=== PATIENT | female | born 1950 | race Caucasian/White ===

== ENCOUNTER 2017-03-22 17:52 | Emergency (ER) | payer OTHER ==
[~2017-03-22] VITALS: Ht 167.6 cm; Wt 100.0 kg
[2017-03-22 17:54] VITALS: BP 185/105; PULSE 95; RESP 12; TEMP 96.7; O2SAT 100
--- NOTE | 2017-03-22 17:58 | PD ---
Physical Exam Time Seen by Provider: 17:55 Narrative 67 y/o female presents for evaluation of depression, suicidal thoughts intermittently for most of her life. Was never forthright with her pcp about these feelings and her friend convinced her to come today. feelings are getting worse. vital signs reviewed. Seen at triage desk. Awaiting bed placement. Data Data Last Documented VS Vital Signs Date Time Temp Pulse Resp B/P Pulse Ox O2 Delivery O2 Flow Rate FiO2 03/22/17 17:54 96.7 95 12 185/105 100 MDM Medical Record Reviewed: Yes Supervised Visit with UMA: Chuck Seaman March 22, 2017 17:58
--- NOTE | 2017-03-22 18:40 | PD ---
HPI Chief Complaint: Psychiatric Symptoms Time Seen by Provider: 18:35 Travel History International Travel<30 days: No Contact w/Intl Traveler<30days: No Traveled to known affect area: No History of Present Illness HPI 67-year-old female that presents to the ED for evaluation of psych. Patient has a chronic history of depression that she's had since childhood. Patient currently takes medications. Per patient she follows with psychiatrist in [facility] for SMA. Per patient she feels like her symptoms are not being treated properly. Per patient she is having more depression and more suicidal thoughts. Per friend who is in the bedside she's been making more suicidal statements and common started on her usual. She does appear to be more depressed. She states that she's been having recent stressors including inability to ambulate secondary to recent surgery to her knees as well as recent falls and losing contact with one of her sons. She has allergies to morphine, chocolate and peanuts. She went to see her PCP and the doctor wanted her to come here to get evaluated. No suicidal or homicidal ideation at this time but she does state that if something gets her on the edge she might just do it. Per friend and patient's symptoms seem to be having worsening for the past week. PFSH Past Medical History Arthritis: Yes Blood Disorders: No Anxiety: No Depression: Yes Cancer: No Cardiovascular Problems: Yes Diminished Hearing: No Endocrine: No Genitourinary: No Hypertension: Yes Immune Disorder: No Musculoskeletal: Yes Neurologic: Yes Psychiatric: Yes Reproductive: No Respiratory: Yes Tetanus Vaccination: < 5 Years Influenza Vaccination: Yes Menopausal: Yes Past Surgical History AICD: No Eye Surgery: Yes (CATARACTS) Gynecologic Surgery: Yes (partial hysterectomy tubal ligation, bilat. sepectomy ) Pacemaker: No Tonsillectomy: Yes Other Surgery: Yes Social History Alcohol Use: Yes (beer and wine occasionally) Tobacco Use: No Substance Use: No Allergies-Medications (Allergen,Severity, Reaction): Coded Allergies: Morphine (Verified Adverse Reaction, Severe, GI, 03/22/17) Uncoded Allergies: chocolate (Adverse Reaction, Intermediate, sinus congestion, 08/29/06) peanuts (Adverse Reaction, Intermediate, SINUS CONGESTION, 08/29/06) Reported Meds & Prescriptions Reported Meds & Active Scripts Active Reported [place] (Hydrocodone-Acetaminophen) Unknown Strength Tab 1 Tab PO Q4-6H PRN Tramadol (Tramadol HCl) 50 Mg Tab 50 Mg PO Q4-6H PRN Flonase Nasal [place] (Fluticasone Nasal [place]) 50 Mcg/Act [place] 1 Spr EACH NARE DAILY Mobic (Meloxicam) 7.5 Mg Tab 7.5 Mg PO DAILY Hydrochlorothiazide 25 Mg Tab 25 Mg PO DAILY Metformin (Metformin HCl) 500 Mg Tab 500 Mg PO BID With meals Metoprolol Tartrate 25 Mg Tab 25 Mg PO BID Cymbalta DR (Duloxetine HCl) 60 Mg Capdr 60 Mg PO DAILY Gabapentin 600 Mg Tab 600 Mg PO QID Ergocalciferol 50,000 Unit Cap 50,000 Units PO WEEKLY Alprazolam 0.5 Mg Tab 0.5 Mg PO BID PRN Wellbutrin Xl 24 HR (Bupropion HCl) 300 Mg Tab 300 Mg PO DAILY Lisinopril 20 Mg Tab 20 Mg PO DAILY Ditropan (Oxybutynin Chloride) 5 Mg Tab 5 Mg PO QID Lamictal (Lamotrigine) 25 Mg Tab 25 Mg PO HS Review of Systems Except as stated in HPI: all other systems reviewed are Neg Physical Exam Narrative GENERAL: SKIN: Warm and dry. HEAD: Atraumatic. Normocephalic. EYES: Pupils equal and round. No scleral icterus. No injection or drainage. ENT: No nasal bleeding or discharge. Mucous membranes pink and moist. Tongue is midline. No uvula deviation. NECK: Trachea midline. No JVD. CARDIOVASCULAR: Regular rate and rhythm. No murmurs, S3, S4. RESPIRATORY: No accessory muscle use. Clear to auscultation. Breath sounds equal bilaterally. GASTROINTESTINAL: Abdomen soft, non-tender, nondistended. Hepatic and splenic margins not palpable. MUSCULOSKELETAL: Extremities without clubbing, cyanosis, or edema. No obvious deformities. Full range of motion of the upper and lower extremities bilaterally. 2+ pulses bilaterally. NEUROLOGICAL: Awake and alert. No obvious cranial nerve deficits. Motor grossly within normal limits. Five out of 5 muscle strength in the arms and legs. Normal speech. PSYCHIATRIC: Depressed mood and affect; insight and judgment normal. Data Data Last Documented VS Vital Signs Date Time Temp Pulse Resp B/P Pulse Ox O2 Delivery O2 Flow Rate FiO2 03/22/17 18:24 16 03/22/17 17:54 96.7 95 185/105 100 Orders Complete Blood Count With Diff (03/22/17 18:16) Comprehensive Metabolic Panel (03/22/17 18:16) Psych Screen (03/22/17 18:16) Drug Screen, Random Urine (03/22/17 18:16) Labs Laboratory Tests Test 03/22/17 03/22/17 18:35 18:50 White Blood Count 6.1 TH/MM3 Red Blood Count 4.32 MIL/MM3 Hemoglobin 12.4 GM/DL Hematocrit 37.9 % Mean Corpuscular Volume 87.6 FL Mean Corpuscular Hemoglobin 28.8 PG Mean Corpuscular Hemoglobin 32.8 % Concent Red Cell Distribution Width 14.1 % Platelet Count 286 TH/MM3 Mean Platelet Volume 8.3 FL Neutrophils (%) (Auto) 56.3 % Lymphocytes (%) (Auto) 27.2 % Monocytes (%) (Auto) 7.1 % Eosinophils (%) (Auto) 8.3 % Basophils (%) (Auto) 1.1 % Neutrophils # (Auto) 3.4 TH/MM3 Lymphocytes # (Auto) 1.7 TH/MM3 Monocytes # (Auto) 0.4 TH/MM3 Eosinophils # (Auto) 0.5 TH/MM3 Basophils # (Auto) 0.1 TH/MM3 CBC Comment DIFF FINAL Differential Comment Sodium Level 140 MEQ/L Potassium Level 4.2 MEQ/L Chloride Level 103 MEQ/L Carbon Dioxide Level 28.9 MEQ/L Anion Gap 8 MEQ/L Blood Urea Nitrogen 11 MG/DL Creatinine 1.03 MG/DL Estimat Glomerular Filtration 54 ML/MIN Rate Random Glucose 127 MG/DL Calcium Level 9.4 MG/DL Total Bilirubin 0.3 MG/DL Aspartate Amino Transf 18 U/L (AST/SGOT) Alanine Aminotransferase 21 U/L (ALT/SGPT) Alkaline Phosphatase 100 U/L Total Protein 7.0 GM/DL Albumin 3.7 GM/DL Urine Opiates Screen NEG Urine Barbiturates Screen NEG Urine Amphetamines Screen NEG Urine Benzodiazepines Screen POS Urine Cocaine Screen NEG Urine Cannabinoids Screen NEG MDM Medical Decision Making Medical Screen Exam Complete: Yes Emergency Medical Condition: Yes Medical Record Reviewed: Yes Interpretation(s) CBC & BMP Diagram 03/22/17 18:35 LFTS WNL tox positive for benzos. Differential Diagnosis Depression versus suicidal ideation versus anxiety versus adjustment disorder versus mood disorder versus bipolar disorder versus schizophrenia versus paranoid disorder versus psychosis versus substance abuse versus alcohol abuse versus alcohol induced psychosis versus homicidality addition versus cutting versus personality disorder Narrative Course 67-year-old female that presents to the ED for evaluation of psych. Patient was properly examined and was found to have signs and symptoms consistent appears to be psychiatric illness. No sign of acute medical distress. Labs were ordered. Patient was medically cleared. Okay to be seen by psych. Mental health screening was discussed with the patient. Diagnosis Primary Impression: Depression Qualified Code: F33.1 - Moderate episode of recurrent major depressive disorder Angel Huitron March 22, 2017 18:40
[2017-03-22] MEDS ORDERED: METF500T PO (18:50)
[2017-03-22] MEDS ORDERED: LAMO25 PO (18:50)
[2017-03-22] MEDS ORDERED: MOBI7.5T PO (18:50)
[2017-03-22] MEDS ORDERED: LISI-515 PO (18:50)
[2017-03-22] MEDS ORDERED: CYMB60CA PO (18:50)
[2017-03-22] MEDS ORDERED: HYDR25TA5 PO (18:50)
[2017-03-22] MEDS ORDERED: OXYB5TAB10 PO (18:50)
[2017-03-22] MEDS ORDERED: NORC5TAB PO (18:50)
[2017-03-22] MEDS ORDERED: WELLTAB39 PO (18:50)
[2017-03-22] MEDS ORDERED: ALPR0.5T3 PO (18:50)
[2017-03-22] MEDS ORDERED: FLUT1SPR5 EACH NARE (18:50)
[2017-03-22] MEDS ORDERED: GABA600T PO (18:50)
[2017-03-22] MEDS ORDERED: TRAM50TA PO (18:50)
[2017-03-22] MEDS ORDERED: METO25TA3 PO (18:50)
[2017-03-22] MEDS ORDERED: ERGO1CAP30 PO (18:50)
[2017-03-22 18:57] LABS: AUTOMATED NEUTROPHIL # 3.4 TH/MM3 (1.8-7.7); BASOPHIL # 0.1 TH/MM3 (0-0.2); BASOPHIL % 1.1 % (0.0-2.0); EOSINOPHIL # 0.5 TH/MM3 (0-0.4); EOSINOPHIL % 8.3 % (0.0-4.0); HEMATOCRIT 37.9 % (35.0-46.0); HEMO FLAGS DIFF FINAL; LYMPH % 27.2 % (9.0-44.0); LYMPHOCYTE # 1.7 TH/MM3 (1.0-4.8); MEAN CELL VOLUME 87.6 FL (80.0-100.0); MEAN CORPUSCULAR HEMOGLOBIN 28.8 PG (27.0-34.0); MEAN CORPUSCULAR HGB CONC 32.8 % (32.0-36.0); MONO % 7.1 % (0.0-8.0); NEUT % 56.3 % (16.0-70.0); PLATELET COUNT 286 TH/MM3 (150-450); RED BLOOD COUNT 4.32 MIL/MM3 (4.00-5.30); RED CELL DISTRIBUTION WIDTH 14.1 % (11.6-17.2); WHITE BLOOD COUNT 6.1 TH/MM3 (4.0-11.0)
[2017-03-22 19:08] LABS: ANION GAP 8 MEQ/L (5-15); AST (GOT) 18 U/L (15-37); BICARBONATE 28.9 MEQ/L (21.0-32.0); BLOOD UREA NITROGEN 11 MG/DL (7-18); CHLORIDE 103 MEQ/L (98-107); GLOMERULAR FILTRATION RATE 54 ML/MIN (>89); POTASSIUM 4.2 MEQ/L (3.5-5.1); SODIUM (NA) 140 MEQ/L (136-145)
[2017-03-22 19:11] LABS: ALKALINE PHOSPHATASE 100 U/L (45-117); ALT (GPT) 21 U/L (10-53); TOTAL BILIRUBIN ADULT 0.3 MG/DL (0.2-1.0)
[2017-03-22 19:12] LABS: AMPHETAMINE, URINE NEG (NEG); BARBITURATES, URINE NEG (NEG); COCAINE, URINE NEG (NEG)
[2017-03-22 20:27] VITALS: BP 160/89; PULSE 88; RESP 14; O2SAT 100
[2017-03-23 07:24] VITALS: BP 147/80; PULSE 81; RESP 20; TEMP 98.2; O2SAT 100
[2017-03-23] MEDS ORDERED: LISINOPRIL 20 MG TAB PO ONE (08:00)
[2017-03-23] MEDS ORDERED: metFORMIN HCL 500 MG TAB PO ONE (08:00)
[2017-03-23] MEDS ORDERED: GABAPENTIN 300 MG CAP PO SCH (08:00)
[2017-03-23] MEDS ORDERED: METOPROLOL TARTRATE 25 MG TAB PO ONE (08:00)
[2017-03-23 10:30] VITALS: BP 149/74; PULSE 66; RESP 17; TEMP 99.1; O2SAT 94
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
== END 2017-03-23 16:00 | disposition home or self-care (01) ==
LOC: NEPE 17:52 → NEPJ 03-23 16:00
DX: F33.1 Major depressive disorder, recurrent, moderate (principal); Z79.899 Other long term (current) drug therapy
CPT/HCPCS: 80053; 80307; 85025; 99283